=== PATIENT | female | born 1945 | race Caucasian/White ===

== ENCOUNTER 2018-06-26 04:50 | Inpatient (IN) | payer MEDICARE, OTHER | END 2018-07-01 17:18 | LOC: CICU 2S 06-27 15:25 → PCU 3S 06-30 16:55 → ER 04:50 → ED HOLD 09:53 → PCU 3S 12:00 | PROC: 0W3B4ZZ Control Bleeding in Left Pleural Cavity, Percutaneous Endoscopic Approach (ICD-10-PCS; principal; 2018-06-27 17:04) | PROC: 0W9B40Z Drainage of Left Pleural Cavity with Drainage Device, Percutaneous Endoscopic Approach (ICD-10-PCS; 2018-06-27 17:04) | PROC: 0W9B30Z Drainage of Left Pleural Cavity with Drainage Device, Percutaneous Approach (ICD-10-PCS; 2018-06-27 17:04) | PROC: 30253N1 (ICD-10-PCS; 2018-06-27 17:04) | DX: J95.811 Postprocedural pneumothorax (principal); S27.1XXA Traumatic hemothorax, initial encounter; L03.313 Cellulitis of chest wall; D62 Acute posthemorrhagic anemia; G20 Parkinson's disease; F02.80 Dementia in other diseases classified elsewhere, unspecified severity, without behavioral disturbance, psychotic disturbance, mood disturbance, and anxiety; S27.1XXD Traumatic hemothorax, subsequent encounter; I49.5 Sick sinus syndrome; I48.91 Unspecified atrial fibrillation ==